=== PATIENT | male | born 1970 | race African-American/Black ===

== ENCOUNTER 2025-07-28 11:16 | Emergency (ER) | payer OTHER ==
[~2025-07-28] VITALS: Ht 182.9 cm; Wt 86.2 kg
[2025-07-28 12:12] LABS: PLATELET COUNT (AUTO) 228 K/uL (150-450); RED BLOOD CELL COUNT(AUTO) 3.75 MIL/uL (4.5-6.0); RED CELL DISTRIBUTION WIDTH 13.2 % (11.5-15.0); WHITE BLOOD COUNT (AUTO) 4.2 K/uL (4.3-11.0)
[2025-07-28] MEDS ORDERED: PANTOPRAZOLE 40 MG VIAL ONE (12:12)
[2025-07-28 12:18] LABS: CALCIUM, SERUM 8.4 mg/dL (8.5-10.1); CREATININE 1.3 mg/dL (0.6-1.3); SODIUM SERUM 139.0 mmol/L (136-145); UREA NITROGEN, BLOOD 32.0 mg/dL (7-18)
[2025-07-28] MEDS: IV NS 0.9% 1,000 ML BAG IV ONE (12:19)
[2025-07-28] MEDS: PANTOPRAZOLE 40 MG VIAL IV ONE (12:19)
[2025-07-28 12:22] LABS: INR 1.16 (0.91-1.10)
[2025-07-28 14:26] VITALS: BP 119/74; TEMP 98.2; O2SAT 99
== END 2025-07-28 14:26 | disposition home or self-care (01) ==
LOC: EDSEX 11:27 → ER 11:27
DX: K92.1 Melena (principal); F17.200 Nicotine dependence, unspecified, uncomplicated; E86.0 Dehydration; I11.9 Hypertensive heart disease without heart failure; I69.354 Hemiplegia and hemiparesis following cerebral infarction affecting left non-dominant side; Z88.0 Allergy status to penicillin; Z88.6 Allergy status to analgesic agent; Z88.8 Allergy status to other drugs, medicaments and biological substances
CPT/HCPCS: 99285; 74176; 96374; 96361; 85025; 80048; 83690; 36415; 85730; J2470